=== PATIENT | male | born 1985 ===

== ENCOUNTER 2023-11-14 08:15 | Outpatient (RCR) | payer OTHER, SELFPAY ==
[2023-10-10 08:19] VITALS: BMI 34.7
[2023-11-14 08:15] VITALS: BMI 34.7
[2023-11-14 08:20] VITALS: BMI 34.7
== END 2023-12-26 14:18 | disposition home or self-care (01) ==
LOC: ANHDMC 08:15
PROVIDERS: Visit Provider Internal Medicine Infectious Disease
DX: R73.01 Impaired fasting glucose (principal); Z71.3 Dietary counseling and surveillance
CPT/HCPCS: 97802; 97803